=== PATIENT | female | born 1985 | race Caucasian/White ===

== ENCOUNTER → 2016-11-28 | Outpatient (CLI) | payer OTHER ==
[~2016-11-28] MED LIST: BCPILLS PO; MULT20CH PO; OXYC-57 PO; PEDICHW53 PO
== END | disposition home or self-care (01) ==
LOC: C.PAPS 11:55
PROVIDERS: ATTEND Obstetrics & Gynecology
DX: Z01.419 Encounter for gynecological examination (general) (routine) without abnormal findings (principal); R87.612 Low grade squamous intraepithelial lesion on cytologic smear of cervix (LGSIL)

== ENCOUNTER → 2016-12-21 | Outpatient (CLI) | payer OTHER | END | disposition home or self-care (01) | LOC: C.PATHSPEC 17:30 | PROVIDERS: ATTEND Obstetrics & Gynecology | DX: R87.612 Low grade squamous intraepithelial lesion on cytologic smear of cervix (LGSIL) (principal); R87.613 High grade squamous intraepithelial lesion on cytologic smear of cervix (HGSIL) ==

== ENCOUNTER → 2017-01-14 | Day surgery (SDC) | payer OTHER ==
[2017-01-02 16:39] LABS: BASO % 0.3 %; BASO ABS # 0.02 K/uL (0-0.2); COMPLETE YES; EOS % 0.4 %; HEMATOCRIT 38.5 % (37-47); IG% 0.3 %; LYMPH % 37.1 %; LYMPH ABS # 2.55 K/uL (1.2-3.4); MEAN CELL VOLUME 89.7 fL (80-100); MEAN CORPUSCULAR HEMOGLOBIN 31.9 pg (25-34); MEAN CORPUSCULAR HGB CONC 35.6 g/dl (32-36); MEAN PLATELET VOLUME 10.7 fL (7.4-10.4); MONO % 7.7 %; NEUT % 54.2 %; PLATELET COUNT 248 K/uL (130-400); RED BLOOD COUNT 4.29 M/uL (4.2-5.4); WHITE BLOOD COUNT 6.88 K/uL (4.8-10.8)
[2017-01-03 08:46] VITALS: Ht 172.7 cm; Wt 74.1 kg
--- NOTE | 2017-01-11 07:56 | HISTORY & PHYSICAL EXAMINATION ---
DATE OF ADMISSION: 01/14/2017 CHIEF COMPLAINT: DAISY 2. HISTORY OF PRESENT ILLNESS: The patient is a 31-year-old white female 1, para 1. The patient had low grade AMAURY on Pap smear November 2016. Colposcopy was performed on December 21 and biopsy showed DAISY 2. The patient wishes to proceed with treatment at this time and is for LEEP of the cervix. LEEP was scheduled in the office, but due to the marked exoversion of the cervix could not be easily performed there so is scheduled in the surgical center. ALLERGIES: MORPHINE DERIVATIVES AND VICODIN. MEDICATIONS: The patient presently takes a multivitamin and also is taking a control pill. PAST SURGICAL HISTORY: She has had a laparoscopic cholecystectomy in the past. She also had gastric surgery for morbid obesity. When she was 2 weeks old, she had ovarian surgery. MEDICAL PROBLEMS: She suffers with anxiety. She has also had back pain. PAST MEDICAL HISTORY: She has a history of an atypical pneumonia. She has had chickenpox in the past. She also has a history of kidney stones. FAMILY HISTORY: There is a family history of diabetes and hypercholesterolemia. SOCIAL HISTORY: The patient is single. She does not smoke cigarettes or drink alcohol. PHYSICAL EXAMINATION: VITAL SIGNS: Height 5 feet 8 inches, weight 163 pounds, blood pressure 116/78. HEENT: Grossly within normal limits. NECK: Supple without masses. CHEST: Her lungs are clear. HEART: Regular rate and rhythm. No murmurs, gallops or rubs. ABDOMEN: Soft and nontender with no masses. PELVIC: External genitalia normal. Vagina pink and stimulated. Cervix pink and closed with no lesions visible. There is significant exoversion present. Uterus is within normal limits size, nontender, adnexa nontender with no masses palpable. EXTREMITIES: No cyanosis, clubbing or edema. IMPRESSION: DAISY 2 of the cervix. PLAN: The patient is for loop electrosurgical excision procedure with removal of abnormal tissue from the cervix. We have discussed the options of follow up colposcopy and biopsy in 6 months rather than treatment at this time. We have also discussed the option of cryosurgery, which I do not think is feasible given the configuration of her cervix. We also discussed a cervical conization, but I do not think this is appropriate as it would tend to remove a greater amount of cervical tissue than necessary. The patient wishes to proceed with the LEEP at this time and is aware of the risks of bleeding, infection, possible damage to surrounding tissues and possible recurrence of dysplasia and possible need for further treatment. TENISHA
[~2017-01-14] VITALS: Ht 172.7 cm; Wt 74.1 kg
[~2017-01-14] MED LIST changes: +ATROPINE SULFATE 0.1 MG/ML 5ML SYR IV PRN; +DEXAMETHASONE SOD INJ 4 MG/ML VIAL IV PRN; +DEXAMETHASONE SOD INJ 4 MG/ML VIAL ONE; +EpHEDrine SULFATE INJ 50 MG/ML AMP IV PRN; +FENTANYL CITRATE INJ 50 MCG/1 ML 2 ML VIAL IV PRN; +FENTANYL CITRATE INJ 50 MCG/1 ML 2 ML VIAL ONE; +FERRIC SUBSULFATE 8 GM VIAL ONE; +IBUPROFEN 600 MG TAB PO PRN; +IODINE SOLN STRONG 14 ML ONE; +KETOROLAC TROMETHAMINE 30 MG/ML VIAL IV. PRN; +LABETALOL HCL IV 5 MG/ML 20ML IV PRN; +LACTATED RINGER'S 1000ML 1,000 ML IV SCH; +LIDOCAINE HCL 2% 2 ML VIAL (20MG/ML) ONE; +LIDOCAINE/EPINEPHRINE 1% INJ 50 ML VIAL ONE; +METOCLOPRAMIDE HCL INJ 5 MG/ML 2 ML VIAL IV PRN; +MIDAZOLAM HCL 1 MG/ML 2ML VIAL ONE; +ONDANSETRON INJ 2 MG/ML 2 ML VIAL IV PRN; +ONDANSETRON INJ 2 MG/ML 2 ML VIAL ONE; +PHENYLEPHRINE 100MCG/ML 5ML SYR IV PRN; +PROPOFOL IV EMULSION 10 MG/ML 20 ML VIAL IV ONE; +SODIUM CHLORIDE 0.9% 1000ML 1,000 ML IV SCH
--- NOTE | 2017-01-14 07:58 | History & Physical Bridge - SC ---
H&P Re-Evaluation Bridge Note: I have examined the patient, reviewed the History & Physical and in the interval since the performance of the History & Physical I have noted the following changes of clinical significance: No changes noted
--- NOTE | 2017-01-14 08:32 | [facility] Post Operative Brief Note ---
Immediate Operative Summary Operative Date Jan 14, 2017. Pre-Operative Diagnosis Cervical intraepithelial neoplasia II Post-Operative Diagnosis Same as preop with pathology pending Procedure(s) Performed Loop Electrosurgical Excision Procedure of Cervix Surgeon Dr. Beckham Clinical Informatics Spec Surgeon(s) None Estimated Blood Loss 10 mL Findings See dictated note. Specimens A: Posterior lip of cervix B: Anterior lip of cervix Complication(s) None Disposition Recovery Room / PACU
--- NOTE | 2017-01-14 08:43 | Discharge Instructions-SurgCtr ---
Discharge Instructions Visit Reason for Visit: DAISY II (high grade intraepithelial neoplasm of cervix) Discharge Discharge Diagnosis / Problem: S/P LEEP of Cervix Discharge Goals Goal(s): Diagnostic testing, Therapeutic intervention Activity Recommendations Activity Limitations: per Instructions/Follow-up section Anesthesia . Post Anesthesia Instructions: If you have had General Anesthesia or IV Sedation: * Do not drive today. * Resume driving when surgeon permits. * Do not make important decisions or sign legal documents today. * Call surgeon for: 1. Temperature elevations greater than 101 degrees F. 2. Uncontrollable pain. 3. Excessive bleeding. 4. Persistent nausea and vomiting. 5. Medication intolerance (nausea, vomiting or rash). * For nausea and vomiting use only clear liquids such as: tea, soda, bouillon until nausea subsides, then gradually increase diet as tolerated. * If you have any concerns or questions, call your surgeon's office. If physician is unavailable and it is an emergency, call 911 or go to the nearest emergency room. . Instructions / Follow-Up Instructions / Follow-Up ACTIVITY RECOMMENDATIONS: Normal activity the day after procedure with the following exceptions/ limitations: 1. No strenuous activity for 2-3 days. 2. Nothing in vagina until after your follow up exam. 3. No heavy lifting greater than 20 pounds for three days. 4. No tampons, douches or intercourse until cleared by physician. 5. You may drive when you feel capable after 24 hours. 6. You may bath or shower. 7. You may climb stairs without restrictions. 8. Call the office if you have persistent cramping and pain, foul vaginal discharge or bleeding heavier than a period. 9. Call the office at [phone] for an appointment with Dr Beckham for your follow up appointment for 3-4 weeks. Diet Recommendations Home Diet: resume previous diet Procedures Procedures Performed: Loop Electrosurgical Excision Procedure of Cervix Pending Studies Studies pending at discharge: yes List of pending studies: We will call you with the pathology report on the tissue removed. Medical Emergencies . Who to Call and When: Medical Emergencies: If at any time you feel your situation is an emergency, please call 911 immediately. . Non-Emergent Contact Non-Emergency issues call your: Care Services Manager Call Non-Emergent contact if: temperature is above 100.5, your pain is not controlled, your pain is worsening, your pain is concerning you . . "Provider Documentation" section prepared by Akanksha Beckham.
--- NOTE | 2017-01-14 08:57 | OPERATIVE REPORT ---
DATE OF OPERATION: 01/14/2017 PREOPERATIVE DIAGNOSIS: Cervical intraepithelial neoplasia 2. POSTOPERATIVE DIAGNOSIS: Same with pathology pending. PROCEDURE: LEEP of the cervix. SURGEON: Dr. Akanksha Beckham. ANESTHESIA: General. YARD CLERK: Dr. Sinha. PROCEDURE: The patient was taken to the operating room where general anesthesia was administered. After an adequate level was obtained, she was placed in dorsal lithotomy position. Vulva, vagina and cervix were prepped with Betadine solution. The patient was draped. Bladder was drained with a straight catheter. Weighted speculum was placed in the posterior fornix of the vagina. The cervix was painted with Lugol's solution. The cervix was then injected with approximately 4 mL of 1% lidocaine with epinephrine. A large wire loop was used and the posterior lip of cervix to the extent of the unstained epithelium was taken. A second pass was made for the anterior lip of the cervix. Some additional pieces were taken to make sure all of the unstained epithelium had been removed. At this point, ball tip cautery was used to obtain hemostasis and the circumference of the mucosa was cauterized. Monsel's was then applied to the remainder of the cervix for hemostasis. At this point, the procedure was ended. The patient tolerated the procedure well. Estimated blood loss was no more than 10 mL. The patient was taken to the recovery room in good condition. I attest to the content of the Intraoperative Record and any orders documented therein. Any exceptions are noted below. [facility]
[2017-01-14 09:22] VITALS: TEMP 36.4
[2017-01-14 09:37] VITALS: BP 95/67; PULSE 63; O2SAT 100
--- NOTE | 2017-01-14 09:52 | Anesthesia Progress Nt - [facility] ---
Anesthesia Post Op Note Date & Time Jan 14, 2017 at 09:52 Vital Signs Pain Intensity: 0 Vital Signs Past 12 Hours Date Time Temp Pulse Resp B/P Pulse Ox O2 Delivery O2 Flow Rate FiO2 01/14/17 09:37 63 16 95/67 100 Room Air 01/14/17 09:22 36.4 57 16 103/75 100 Room Air 01/14/17 09:13 103/64 01/14/17 09:12 54 15 01/14/17 09:12 54 15 100 01/14/17 09:08 106/58 01/14/17 09:07 55 17 01/14/17 09:07 55 17 100 01/14/17 09:04 Room Air 01/14/17 09:03 108/60 01/14/17 09:02 51 20 01/14/17 09:02 51 20 100 01/14/17 08:58 104/61 01/14/17 08:57 56 14 01/14/17 08:57 57 14 100 01/14/17 08:53 101/49 01/14/17 08:52 68 15 01/14/17 08:52 67 15 100 01/14/17 08:48 101/61 01/14/17 08:47 66 18 01/14/17 08:47 64 18 100 01/14/17 08:43 107/66 01/14/17 08:42 75 16 01/14/17 08:42 72 16 100 01/14/17 08:38 109/64 01/14/17 08:37 92 100 01/14/17 08:37 77 01/14/17 08:36 36.2 76 16 110/68 100 Diffusion Mask 5 01/14/17 07:16 36.8 63 16 91/59 100 Room Air Notes Mental Status: alert / awake / arousable, participated in evaluation Pt Amnestic to Procedure: Yes Nausea / Vomiting: adequately controlled Pain: adequately controlled Airway Patency, RR, SpO2: stable & adequate BP & HR: stable & adequate Hydration State: stable & adequate Anesthetic Complications: no major complications apparent
== END | disposition home or self-care (01) ==
LOC: X.SURG 06:51
PROVIDERS: ATTEND Obstetrics & Gynecology
DX: N87.1 Moderate cervical dysplasia (principal); E11.9 Type 2 diabetes mellitus without complications; Z88.5 Allergy status to narcotic agent; Z90.49 Acquired absence of other specified parts of digestive tract; Z98.84 Bariatric surgery status; Z83.3 Family history of diabetes mellitus; Z68.25 Body mass index [BMI] 25.0-25.9, adult

== ENCOUNTER 2017-02-23 17:25 | Emergency (ER) | payer OTHER ==
[~2017-02-23] VITALS: Ht 172.7 cm; Wt 73.5 kg
[~2017-02-23 17:25] MED LIST changes: -ATROPINE SULFATE 0.1 MG/ML 5ML SYR IV PRN; -DEXAMETHASONE SOD INJ 4 MG/ML VIAL IV PRN; -DEXAMETHASONE SOD INJ 4 MG/ML VIAL ONE; -EpHEDrine SULFATE INJ 50 MG/ML AMP IV PRN; -FENTANYL CITRATE INJ 50 MCG/1 ML 2 ML VIAL IV PRN; -FENTANYL CITRATE INJ 50 MCG/1 ML 2 ML VIAL ONE; -FERRIC SUBSULFATE 8 GM VIAL ONE; -IBUPROFEN 600 MG TAB PO PRN; -IODINE SOLN STRONG 14 ML ONE; -KETOROLAC TROMETHAMINE 30 MG/ML VIAL IV. PRN; -LABETALOL HCL IV 5 MG/ML 20ML IV PRN; -LACTATED RINGER'S 1000ML 1,000 ML IV SCH; -LIDOCAINE HCL 2% 2 ML VIAL (20MG/ML) ONE; -LIDOCAINE/EPINEPHRINE 1% INJ 50 ML VIAL ONE; -METOCLOPRAMIDE HCL INJ 5 MG/ML 2 ML VIAL IV PRN; -MIDAZOLAM HCL 1 MG/ML 2ML VIAL ONE; -MULT20CH PO; -ONDANSETRON INJ 2 MG/ML 2 ML VIAL IV PRN; -ONDANSETRON INJ 2 MG/ML 2 ML VIAL ONE; -OXYC-57 PO; -PHENYLEPHRINE 100MCG/ML 5ML SYR IV PRN; -PROPOFOL IV EMULSION 10 MG/ML 20 ML VIAL IV ONE; -SODIUM CHLORIDE 0.9% 1000ML 1,000 ML IV SCH
[2017-02-23 17:29] VITALS: TEMP 36.8; Ht 172.7 cm; Wt 73.5 kg
[2017-02-23] MEDS ORDERED: MULT20CH PO (17:43)
--- NOTE | 2017-02-23 18:06 | DIAGNOSTIC IMAGING REPORT ---
RIGHT HAND MIN 3 VIEWS ROUTINE CLINICAL HISTORY: Right hand pain following injury. COMPARISON: None FINDINGS: There is an oblique mildly displaced acute fracture of the base and proximal shaft of the right fifth metacarpal with soft tissue swelling. No additional fractures are identified. Carpal bones are intact. IMPRESSION: Acute mildly displaced oblique fracture of the base and proximal shaft of the right fifth metacarpal. Electronically signed by: Bobby Gross M.D. 02/23/2017 6:05 PM Dictated Date/Time: 02/23/2017 6:04 PM
[2017-02-23] MEDS ORDERED: IBUPROFEN 800 MG TAB PO STA (18:07)
[2017-02-23] MEDS ORDERED: OXYCODONE/ACETAMINOPHEN 5-325 TAB PO STA (18:09)
[2017-02-23] MEDS ORDERED: PERCOCET HOME PACK PO ONE (18:15)
[2017-02-23] MEDS ORDERED: OXYC-57 PO (18:30)
--- NOTE | 2017-02-23 18:34 | EMERGENCY ROOM VISIT NOTE ---
ED Visit Note First contact with patient: 17:32 CHIEF COMPLAINT: Hand injury HISTORY OF PRESENT ILLNESS: This 31-year-old female patient presented to the emergency department ambulatory after they injured the right hand just prior to arrival. The patient reports she was messing around with her boyfriend when she swung and hit her right hand on a pole. The patient rates the pain as sharp and 8/10. The patient denies any numbness or tingling. The patient does not have injuries to the wrist. The patient has are not had a previous fracture to this hand. She does report she has previously seen Dr. Smith of orthopedics. REVIEW OF SYSTEMS: A 6 system review of systems was completed with positives and pertinent negatives in the HPI. ALLERGIES: Hydrocodone, morphine MEDICATIONS: control pills, daily multivitamin PMH: No significant past medical history. SOCIAL HISTORY: The patient lives locally with family. Nonsmoker. PHYSICAL EXAM: Vital Signs: Reviewed Nurse's notes, vital signs stable. GENERAL : This is a 31-year-old female, in no acute distress, but appears to be in pain , well-developed, well-nourished. MUSCULOSKELETAL: There is in area of edema and tenderness over the proximal fifth metacarpal. There is mild ecchymosis over the area. The hand is otherwise nontender. Full range of motion of all fingers. Access Rep strength 4/5. There is no laceration. Capillary refill less than 2 seconds. No tenderness of the fingers or wrist. Full range of motion of the wrist. No snuff box tenderness. Radial pulse 2+. NEURO: Alert and oriented to person, place, and time. Normal sensation to light and sharp touch. RADIOGRAPHIC FINDINGS: RIGHT HAND MIN 3 VIEWS ROUTINE CLINICAL HISTORY: Right hand pain following injury. COMPARISON: None FINDINGS: There is an oblique mildly displaced acute fracture of the base and proximal shaft of the right fifth metacarpal with soft tissue swelling. No additional fractures are identified. Carpal bones are intact. IMPRESSION: Acute mildly displaced oblique fracture of the base and proximal shaft of the right fifth metacarpal. EMERGENCY DEPARTMENT COURSE: I examined the patient. An x-ray of the right hand was reviewed by myself and radiology and shows a fracture of the base of the fifth metacarpal. The patient was placed in an Ortho-Glass ulnar gutter splint by the ED vehicle modification technician under my supervision. Neurovascular status was reassessed and was intact. The patient was placed in an arm sling. She was given 800 mg ibuprofen for pain. She was given a home pack and prescription for Percocet to be taken for more severe pain. Conservative measures were discussed. She will contact orthopedics for follow-up. She verbalized understanding of my assessment and treatment plan. The patient was discharged home in good condition. DIAGNOSIS: Right fifth metacarpal fracture Problem List Surgical Problems: (1) Cholelith W Cholecys Nec Status: Resolved (2) History of cholecystectomy Status: Resolved Current/Historical Medications Scheduled Control Pills ( Control Pills), 1 TAB PO HS Multiple Vitamins W/ Minerals (Adult One Daily Gummies), 1 TAB PO DAILY Scheduled PRN Oxycodone/Acetaminophen 5MG/325MG (Percocet 5MG/325MG), 1-2 TABS PO Q4 PRN for Pain Allergies Coded Allergies: Hydrocodone (Verified Allergy, Unknown, TIGHTNESS IN CHEST, 02/23/17) TOLERATES IF TAKING WITH FOOD Morphine (Verified Allergy, Unknown, FEELS LIKE CAN'T BREATHE, HYPERVENTILATES, 02/23/17) Vital Signs Date Time Temp Pulse Resp B/P Pulse Ox O2 Delivery O2 Flow Rate FiO2 02/23/17 17:29 36.8 88 18 118/74 98 Room Air Medications Administered Medications (Trade) Dose Ordered Sig/Nataliia Route Start Time Stop Time Status Last Admin Dose Admin Ibuprofen (Motrin Tab) 800 mg NOW STAT PO 02/23/17 18:07 02/23/17 18:08 DC 02/23/17 18:28 800 MG Oxycodone/ Acetaminophen (Percocet 5/ 325MG Home Pack) 1 homepack UD ONCE PO 02/23/17 18:15 02/23/17 18:16 DC 02/23/17 18:28 1 HOMEPACK Departure Information Impression Primary Impression: Fracture of fifth metacarpal bone of right hand Dispostion Home / Self-Care Condition GOOD Prescriptions Oxycodone/Acetaminophen 5MG/325MG (PERCOCET 5MG/325MG) Tab 1-2 TABS PO Q4 Y for Pain, #15 TAB For Initial Treatment Prov: Cathy Sung ., YEFRI 02/23/17 Referrals Rohini Calzada, MehranRValeryNGerald (PCP) Randall Smith D.O. Patient Instructions My [facility] Additional Instructions You have been treated in the Emergency Department for a hand fracture. You have received pain medicine in the emergency department which impairs your ability to operate a vehicle. It is illegal for you to drive after receiving these medicines. You have been prescribed Percocet to be used for pain control. This is a narcotic medication. You cannot drive or consume alcohol while on this medicine. This medicine should only be used for pain that cannot be controlled with bkji-gtl-fanuaxl pain medicines. For pain control, you can use the following gddx-wqa-vadaftj medicines (if >12 yo): - Regular strength (325mg/tab) Tylenol (acetaminophen) 2 tabs every 4-6 hours as needed. Do not exceed 12 tablets in a 24 hour period. Avoid taking more than 4 grams (4000 mg) of Tylenol per day. This includes any other sources of acetaminophen you may take on a regular basis. - Regular strength (200 mg/tab) Advil (ibuprofen) 1-2 tabs every 4-6 hours as needed. Do not exceed a dose of 3200 mg per day. If this is a recent injury (<24 hrs), ice can be applied to the area of pain for the first 3 days to help decrease pain and inflammation. You have been provided the number for an Orthopaedic Surgeon. You should call this number as soon as possible to establish a follow-up visit from today's Emergency Department visit. Keep the brace in place until evaluated by Orthopedics. Return to the Emergency Department if your current symptoms worsen despite treatment course outlined above, or if you develop any of the following symptoms : intractable pain despite aforementioned treatment course or new onset of numbness or tingling of the fingers. Problem Qualifiers Primary Impression: Fracture of fifth metacarpal bone of right hand Encounter type: initial encounter Fracture type: closed Metacarpal location : base Fracture alignment: displaced Qualified Codes: S62.316A - Displaced fracture of base of fifth metacarpal bone, right hand, initial encounter for closed fracture
[2017-02-23 18:48] VITALS: BP 139/84; PULSE 87; O2SAT 98
[2017-09-13] MEDS ORDERED: SULF800T23 PO ×2 (10:21→11:42)
[2017-09-13] MEDS ORDERED: OXYC1TAB3 PO (11:42)
[2017-09-13] MEDS ORDERED: PROM25TA9 PO (11:49)
== END 2017-02-23 18:50 | disposition home or self-care (01) ==
LOC: C.EDB 17:25 → C.EDD 18:50
DX: S62.316A Displaced fracture of base of fifth metacarpal bone, right hand, initial encounter for closed fracture (principal); W22.8XXA Striking against or struck by other objects, initial encounter; Z90.49 Acquired absence of other specified parts of digestive tract; Z88.5 Allergy status to narcotic agent

== ENCOUNTER → 2017-04-05 | Outpatient (CLI) | payer OTHER ==
[~2017-04-05] MED LIST changes: +MULT20CH PO; +OXYC-57 PO; +OXYC1TAB3 PO; -PEDICHW53 PO; +PROM25TA9 PO; +SULF800T23 PO
[2017-04-07 15:39] LABS: CHLAMYDIA TRACH RNA*** NOT DETECTED (NOT DETECTED); GC (NEIS GONORRHOEAE)RNA** NOT DETECTED (NOT DETECTED)
== END | disposition home or self-care (01) ==
LOC: C.LABSPEC 12:28
PROVIDERS: ATTEND Physician Assistant
DX: Z30.430 Encounter for insertion of intrauterine contraceptive device (principal)

== ENCOUNTER → 2017-07-24 | Outpatient (CLI) | payer OTHER ==
[~2017-07-24] MED LIST changes: -OXYC1TAB3 PO; -PROM25TA9 PO; -SULF800T23 PO
== END | disposition home or self-care (01) ==
LOC: C.LABSPEC 13:49
PROVIDERS: ATTEND Physician Assistant
DX: L29.8 Other pruritus (principal)

== ENCOUNTER → 2017-09-12 | Outpatient (CLI) | payer OTHER ==
[~2017-09-12] MED LIST changes: -OXYC-57 PO; +OXYC1TAB3 PO; +PROM25TA9 PO; +SULF800T23 PO
--- NOTE | 2017-09-12 14:57 | DIAGNOSTIC IMAGING REPORT ---
KUB HISTORY: Acute left-sided flank pain with history of kidney stones Flank pain Urinary tract infection, acute COMPARISON: Acute abdominal series radiographs 11/07/2013, CT 12/11/2015 FINDINGS: The bowel gas pattern is non-obstructive. There is no organomegaly. No renal calculi. No ureteral calculi. No pneumoperitoneum or pneumatosis. Intrauterine device noted. Prior cholecystectomy. No fracture. IMPRESSION: No renal or ureteral stones. Electronically signed by: Cesar Banda M.D. 09/12/2017 2:55 PM Dictated Date/Time: 09/12/2017 2:54 PM
== END | disposition home or self-care (01) ==
LOC: C.RADPV 14:40
PROVIDERS: ATTEND Nurse Practitioner
DX: R10.9 Unspecified abdominal pain (principal); N39.0 Urinary tract infection, site not specified; R39.9 Unspecified symptoms and signs involving the genitourinary system

== ENCOUNTER → 2017-09-18 | Outpatient (CLI) | payer OTHER ==
[~2017-09-18] MED LIST changes: -BCPILLS PO; -MULT20CH PO
[2017-09-18 14:13] LABS: ALT/SGPT 40 U/L (12-78); BLOOD UREA NITROGEN 8 mg/dl (7-18); CALCIUM 8.8 mg/dl (8.5-10.1); CARBON DIOXIDE 26 mmol/L (21-32); CHLORIDE 105 mmol/L (98-107); CREATININE 0.98 mg/dl (0.60-1.20); GLUCOSE 95 mg/dl (70-99); SODIUM 137 mmol/L (136-145)
[2017-09-18 14:16] LABS: ALB/GLOB RATIO 1.2 (0.9-2); ALKALINE PHOSPHATASE 70 U/L (45-117); AST/SGOT 18 U/L (15-37)
== END | disposition home or self-care (01) ==
LOC: C.LABPVFM 11:00
PROVIDERS: ATTEND Nurse Practitioner
DX: R74.8 Abnormal levels of other serum enzymes (principal); N39.0 Urinary tract infection, site not specified

== ENCOUNTER → 2017-11-16 | Outpatient (CLI) | payer OTHER | END | disposition home or self-care (01) | LOC: C.LABPVFM 11:32 | PROVIDERS: ATTEND Nurse Practitioner Family | DX: R10.9 Unspecified abdominal pain (principal) ==

== ENCOUNTER → 2017-11-21 | Outpatient (CLI) | payer OTHER ==
--- NOTE | 2017-11-21 15:33 | DIAGNOSTIC IMAGING REPORT ---
KUB CLINICAL HISTORY: Right flank pain. FINDINGS: 2 AP supine abdominal radiographs are correlated with abdominal CT dated 09/13/2017. There is a nonobstructed abdominal bowel gas pattern. Cholecystectomy clips are identified in the right upper quadrant. Suture material projects over the stomach. An intrauterine device and tampon are seen in the pelvis. There is no radiographic evidence of nephrolithiasis. Tiny pelvic phleboliths are observed. The bony structures appear intact. IMPRESSION: 1. Nonobstructed abdominal bowel gas pattern. 2. There is no radiographic evidence of nephrolithiasis. No renal calculi were seen on the 09/13/[address] scan. Electronically signed by: Jacky Truong M.D. 11/21/2017 3:32 PM Dictated Date/Time: 11/21/2017 3:30 PM
[2017-11-21 17:32] LABS: BASO % 0.2 %; BASO ABS # 0.02 K/uL (0-0.2); COMPLETE YES; EOS % 1.7 %; HEMATOCRIT 41.5 % (37-47); IG% 0.2 %; LYMPH % 25.5 %; LYMPH ABS # 2.04 K/uL (1.2-3.4); MEAN CELL VOLUME 92.6 fL (80-100); MEAN CORPUSCULAR HEMOGLOBIN 31.5 pg (25-34); MEAN PLATELET VOLUME 10.4 fL (7.4-10.4); MONO % 7.6 %; NEUT % 64.8 %; PLATELET COUNT 252 K/uL (130-400); RED BLOOD COUNT 4.48 M/uL (4.2-5.4); WHITE BLOOD COUNT 8.01 K/uL (4.8-10.8)
[2017-11-21 17:52] LABS: BLOOD UREA NITROGEN 14 mg/dl (7-18); BUN/CREATININE RATIO 15.3 (10-20); CALCIUM 8.9 mg/dl (8.5-10.1); CARBON DIOXIDE 29 mmol/L (21-32); CHLORIDE 106 mmol/L (98-107); GLUCOSE 91 mg/dl (70-99); POTASSIUM 4.3 mmol/L (3.5-5.1); SODIUM 137 mmol/L (136-145)
== END | disposition home or self-care (01) ==
LOC: C.RADPV 14:50
PROVIDERS: ATTEND Nurse Practitioner
DX: R10.9 Unspecified abdominal pain (principal); R53.83 Other fatigue; I95.9 Hypotension, unspecified

== ENCOUNTER → 2018-01-08 | Outpatient (CLI) | payer OTHER | LOC: C.PAPS 11:30 | PROVIDERS: ATTEND Obstetrics & Gynecology | DX: Z12.4 Encounter for screening for malignant neoplasm of cervix (principal) ==

== ENCOUNTER 2018-07-02 22:40 | Emergency (ER) | payer OTHER ==
[~2018-07-02] VITALS: Ht 172.7 cm; Wt 80.0 kg
[~2018-07-02 22:40] MED LIST changes: -CEPH-571 PO; -CYCL10TA6 PO; -LEVO1IUD2 IU; -MULT-506 PO
[2018-07-02 22:53] VITALS: Ht 172.7 cm; Wt 80.0 kg
[2018-07-02] MEDS ORDERED: SODIUM CHLORIDE 0.9% 1000ML 1,000 ML IV STA (23:11)
[2018-07-02] MEDS ORDERED: ONDANSETRON INJ 2 MG/ML 2 ML VIAL IV STA (23:11)
[2018-07-02] MEDS ORDERED: CEFTRIAXONE SOD INJ 1 GM ADDVIAL IV STA (23:11)
[2018-07-02] MEDS ORDERED: FENTANYL CITRATE INJ 50 MCG/1 ML 2 ML VIAL IV STA (23:11)
--- NOTE | 2018-07-02 23:23 | EMERGENCY ROOM VISIT NOTE ---
History Report prepared by Yeimi: Abdon Sweeney Under the Supervision of: Dr. Diamante Gupta D.O. First contact with patient: 22:58 Chief Complaint: URINARY SYMPTOMS Stated Complaint: UTI,KIDNEY INFECTION Nursing Triage Summary: UTI, n/v and abd pain History of Present Illness The patient is a 32 year old female who presents to the Emergency Room with complaints of constant burning with urination beginning this afternoon. She currently reports her symptoms a 7/10 in severity. The patient states it felt like she has had to push to urinate for the past week. She reports she had her menstrual period over the weekend, and she had menstrual cramps. The patient notes her pain has been consistent since this weekend and is located in her lower back. She states she was evaluated by her PCP this morning and told she has a UTI and kidney infection. The patient reports her urine was sent out, and she did not have blood work obtained. She notes she was started on Cipro and Pyridium. The patient states she took both doses this afternoon, and she became nauseous and started vomiting. She reports she now has severe burning with urination, and this was not present before today. The patient notes a history of UTIs that spread to her kidneys, four kidney stones, diabetes, and a cholecystectomy. She states she was on a large amount of medications for her diabetes, and she had weight loss surgery. The patient reports her diabetes is now strictly diet controlled. She notes she has tried alternating between Aleve and Tylenol for her pain, but it has not helped. The patient denies a history of being resistant to organisms, diarrhea, changes in her bowel movements, and recent kidney evaluation. Review of EMR: Pt has no recent positive urine cultures. CT scan in August of 2017 that was negative for renal stones or abnormalities of the kidneys. Source of History: patient Onset: this afternoon Symptom Intensity: 7/10 Quality: burning (with urination) Timing: constant Associated Symptoms: + nausea, + vomiting, + back pain, No diarrhea Review of Systems See HPI for pertinent positives & negatives. A total of 10 systems reviewed and were otherwise negative. Past Medical & Surgical Medical Problems: (1) Bariatric Surgery Status (2) Colitis (3) Colitis (4) Diab Jane Wo Compl, Type Ii Or Unspec Type, Not Uncntrld (5) Diarrhea (6) Foot pain (7) Hypomagnesemia (8) Personal History Of Urinary Calculi Surgical Problems: (1) Cholelith W Cholecys Nec (2) History of cholecystectomy Family History Cancer Diabetes mellitus Hypertension Kidney disease Kidney stones Social History Smoking Status: Never Smoker Alcohol Use: none Drug Use: none Marital Status: in relationship Housing Status: lives with family Occupation Status: employed Current/Historical Medications Scheduled Cephalexin (Keflex), 1 CAP PO BID Levonorgestrel (Iud) (Mirena), 20 MCG IU CONTINOUS Multivitamin (Multivitamin), 1 TAB PO DAILY Scheduled PRN Cyclobenzaprine Hcl (Flexeril), 10 MG PO DAILY PRN for SPASMS Allergies Coded Allergies: Hydrocodone (Verified Allergy, Unknown, TIGHTNESS IN CHEST, 09/13/17) TOLERATES IF TAKING WITH FOOD Morphine (Verified Allergy, Unknown, FEELS LIKE CAN'T BREATHE, HYPERVENTILATES, 09/13/17) Physical Exam Vital Signs Date Time Temp Pulse Resp B/P (MAP) Pulse Ox O2 Delivery O2 Flow Rate FiO2 07/03/18 02:06 36.7 62 18 105/68 100 07/03/18 01:24 36.7 60 16 103/71 100 Room Air 07/03/18 00:13 63 15 106/64 100 Room Air 07/02/18 22:53 36.7 66 18 113/73 100 Room Air Physical Exam GENERAL: alert, uncomfortable appearing, well nourished, no distress, non-toxic EYE EXAM: normal conjunctiva, PERRL and EOM's grossly intact OROPHARYNX: no exudate, no erythema, lips, buccal mucosa, and tongue normal and mucous membranes are moist NECK: supple, no nuchal rigidity, no adenopathy, non-tender LUNGS: Clear to auscultation. Normal chest wall mechanics, no w/r/r HEART: no murmurs, S1 normal and S2 normal ABDOMEN: abdomen soft, non-tender, normo-active bowel sounds, no masses, no rebound or guarding. BACK: Back is symmetrical on inspection and there is no deformity, no midline tenderness, some reproducible tenderness of the lower back, no CVA tenderness. SKIN: no rashes and no bruising UPPER EXTREMITIES: upper extremities are grossly normal. FROM, nml pulses. LOWER EXTREMITIES: No pitting edema. FROM, nml pulses. NEURO EXAM: Normal sensorium, cranial nerves II-XII grossly intact, normal speech, no gross weakness of arms, no gross weakness of legs. Medical Decision & Procedures ER Provider Diagnostic Interpretation: Radiology results have been interpreted by the [facility] radiologist and reviewed by me. US RENAL: The kidneys are normal in size and in echogenicity bilaterally. No focal lesions. No evidence of renal calculi. No hydro. Bladder is not completely distended. Radiologist: Hadley Daniels MD Study ready at 0010 and initial results transmitted at 0043. Laboratory Results 07/02/18 23:37 Red Blood Count 4.47, Mean Corpuscular Volume 91.3, Mean Corpuscular Hemoglobin 32.0, Mean Corpuscular Hemoglobin Concent 35.0, Mean Platelet Volume 10.2, Neutrophils (%) (Auto) 59.2, Lymphocytes (%) (Auto) 33.0, Monocytes (%) (Auto) 6.2, Eosinophils (%) (Auto) 1.2, Basophils (%) (Auto) 0.3, Neutrophils # (Auto) 4.51, Lymphocytes # (Auto) 2.51, Monocytes # (Auto) 0.47, Eosinophils # (Auto) 0.09, Basophils # (Auto) 0.02 07/02/18 23:37 Test 07/02/18 23:37 07/02/18 23:43 07/02/18 23:45 White Blood Count 7.61 K/uL (4.8-10.8) Red Blood Count 4.47 M/uL (4.2-5.4) Hemoglobin 14.3 g/dL (12.0-16.0) Hematocrit 40.8 % (37-47) Mean Corpuscular Volume 91.3 fL (80-100) Mean Corpuscular Hemoglobin 32.0 pg (25-34) Mean Corpuscular Hemoglobin Concent 35.0 g/dl (32-36) Platelet Count 258 K/uL (130-400) Mean Platelet Volume 10.2 fL (7.4-10.4) Neutrophils (%) (Auto) 59.2 % Lymphocytes (%) (Auto) 33.0 % Monocytes (%) (Auto) 6.2 % Eosinophils (%) (Auto) 1.2 % Basophils (%) (Auto) 0.3 % Neutrophils # (Auto) 4.51 K/uL (1.4-6.5) Lymphocytes # (Auto) 2.51 K/uL (1.2-3.4) Monocytes # (Auto) 0.47 K/uL (0.11-0.59) Eosinophils # (Auto) 0.09 K/uL (0-0.5) Basophils # (Auto) 0.02 K/uL (0-0.2) RDW Standard Deviation 42.6 fL (36.4-46.3) RDW Coefficient of Variation 12.8 % (11.5-14.5) Immature Granulocyte % (Auto) 0.1 % Immature Granulocyte # (Auto) 0.01 K/uL (0.00-0.02) Anion Gap 7.0 mmol/L (3-11) Est Creatinine Clear Calc Drug Dose 97.2 ml/min Estimated GFR () 94.4 Estimated GFR (Non- 81.4 BUN/Creatinine Ratio 13.5 (10-20) Calcium Level 8.5 mg/dl (8.5-10.1) Magnesium Level 1.9 mg/dl (1.8-2.4) Total Bilirubin 0.3 mg/dl (0.2-1) Aspartate Amino Transf (AST/SGOT) 21 U/L (15-37) Alanine Aminotransferase (ALT/SGPT) 78 U/L (12-78) Alkaline Phosphatase 70 U/L (45-117) Total Protein 7.6 gm/dl (6.4-8.2) Albumin 4.1 gm/dl (3.4-5.0) Globulin 3.5 gm/dl (2.5-4.0) Albumin/Globulin Ratio 1.2 (0.9-2) Bedside Lactic Acid Venous 0.66 mmol/L (0.90-1.70) Urine Color YELLOW Urine Appearance CLEAR (CLEAR) Urine pH 6.0 (4.5-7.5) Urine Specific [place] 1.019 (1.000-1.030) Urine Protein NEG (NEG) Urine Glucose (UA) NEG (NEG) Urine Ketones NEG (NEG) Urine Occult Blood NEG (NEG) Urine Nitrite NEG (NEG) Urine Bilirubin NEG (NEG) Urine Urobilinogen NEG (NEG) Urine Leukocyte Esterase SMALL (NEG) Urine WBC (Auto) 10-30 /hpf (0-5) Urine RBC (Auto) 5-10 /hpf (0-4) Urine Hyaline Casts (Auto) 5-10 /lpf (0-5) Urine Epithelial Cells (Auto) >30 /lpf (0-5) Urine Bacteria (Auto) NEG (NEG) Laboratory results per my review. Medications Administered Medications (Trade) Dose Ordered Sig/Nataliia Route Start Time Stop Time Status Last Admin Dose Admin Sodium Chloride 1,000 ml @ 999 mls/hr Q1H1M STAT IV 07/02/18 23:11 07/03/18 00:11 DC 07/02/18 23:40 999 MLS/HR Ondansetron HCl (Zofran Inj) 4 mg NOW STAT IV 07/02/18 23:11 07/02/18 23:16 DC 07/02/18 23:40 4 MG Fentanyl Citrate (Fentanyl Inj) 50 mcg NOW STAT IV 07/02/18 23:11 07/02/18 23:16 DC 07/02/18 23:40 50 MCG Ceftriaxone Sodium (Rocephin Inj) 1 gm NOW STAT IV 07/02/18 23:11 07/02/18 23:16 DC 07/02/18 23:54 1 GM Fentanyl Citrate (Fentanyl Inj) 50 mcg NOW STAT IV 07/03/18 00:28 07/03/18 00:29 DC 07/03/18 00:37 50 MCG Ketorolac Tromethamine (Toradol Inj) 30 mg NOW STAT IV 07/03/18 01:00 07/03/18 01:01 DC 07/03/18 01:15 30 MG Lidocaine (Lidoderm Patch 5%) 1 patch NOW STAT TD 07/03/18 01:00 07/03/18 01:01 DC 07/03/18 01:16 1 PATCH Oxycodone/ Acetaminophen (Percocet 5-325mg Tab) 1 tab NOW ONCE PO 07/03/18 01:00 07/03/18 01:01 DC 07/03/18 01:16 1 TAB Oxycodone/ Acetaminophen (Percocet 5/ 325MG Home Pack) 1 homepack UD ONCE PO 07/03/18 01:00 07/03/18 01:01 DC 07/03/18 01:16 1 HOMEPACK Ondansetron HCl (ZOFRAN ODT 4MG Home Pack) 1 homepack UD ONCE PO 07/03/18 01:15 8/9/18 01:16 DC 07/03/18 01:17 1 HOMEPACK Cephalexin Monohydrate (Keflex 500MG Home Pack) 1 homepack NOW ONCE PO 07/03/18 02:00 07/03/18 02:01 DC 07/03/18 01:59 1 HOMEPACK ED Course 2301: The patient was evaluated in room A11B. A complete history and physical exam was performed. 2311: Ordered Rocephin 1gm IV, Fentanyl 50mcg IV, Zofran 4mg IV, Sodium Chloride 1000 ml @ 999 mls/hr IV 0026: I reevaluated the patient. She is feeling better. Her pain was better until she went to ultrasound. 0028: Ordered Fentanyl 50mcg IV 0049: I reevaluated the patient and updated her of her results. She is trying a PO challenge. 0100: Ordered Oxycodone/Acetaminophen 1 homepack PO, Oxycodone/Acetaminophen 1 tab PO, Lidocaine 1 patch TD, Toradol 30mg IV 0115: Ordered Ondansetron HCl 1 homepack PO 0148: Upon reevaluation, the patient is feeling better. I discussed the findings and the treatment plan with the patient. She verbalizes agreement and understanding. The patient will be discharged home when she receives her medication. 0200: Orderd Keflex 500MG 1 homepack PO Medical Decision Differential diagnosis: Etiologies such as renal colic, appendicitis, diverticulitis, mesenteric ischemia, aortic pathology, infections, inflammatory bowel disease, PUD, biliary pathology, UTI, as well as others were entertained. Patient improved here following meds and IV fluids. Patient given IV Rocephin as a precaution given concern for ascending UTI or early pyelonephritis. I do not suspect obstructive uropathy as patient's presentation not consistent with stone and no hydronephrosis or renal calculi seen on ultrasound. Ultrasound shows and over CT given patient has had multiple prior CTs already. Patient's renal function intact. No evidence of bacteremia/sepsis. I do not suspect other GI or vascular etiology of her symptoms. Discussed with patient use of the Keflex as there is been increasing resistance to Cipro in recent years. Discussed with her close follow-up with family doctor, symptoms to watch and return for, she verbalized understanding was agreeable with plan. Patient tolerating p.o. here prior to discharge, and ambulatory with a steady gait. Patient hemodynamically stable throughout. Medication Reconcilliation Current Medication List: was personally reviewed by me Blood Pressure Screening Patient's blood pressure: Normal blood pressure Blood pressure disposition: Did not require urgent referral Impression Primary Impression: Urinary tract infection Scribe Attestation The scribe's documentation has been prepared under my direction and personally reviewed by me in its entirety. I confirm that the note above accurately reflects all work, treatment, procedures, and medical decision making performed by me. Departure Information Dispostion Home / Self-Care Prescriptions Cephalexin (KEFLEX) 500 Mg Cap 1 CAP PO BID for 7 Days, #14 CAP Prov: Diamante Gupta, DO 07/03/18 Referrals No Doctor, Assigned (PCP) Forms HOME CARE DOCUMENTATION FORM, IMPORTANT VISIT INFORMATION Patient Instructions ED Kidney Infec Female, ED UTI Cystitis Female, My [facility] [address] Additional Instructions Please take antibiotic Keflex (cephalexin) as prescribed. Do not take the ciprofloxacin. You may use a nausea medication as needed. Please drink plenty of water. The urine culture will take 48 hours to result. If it grows out an abnormal organism and your antibiotics need to be changed, you will receive a phone call. If you have any worsening symptoms or other new concerns, please return the emergency room. Problem Qualifiers Primary Impression: Urinary tract infection Urinary tract infection type: acute cystitis Hematuria presence: without hematuria Qualified Codes: N30.00 - Acute cystitis without hematuria
[2018-07-02 23:53] LABS: BASO % 0.3 %; BASO ABS # 0.02 K/uL (0-0.2); EOS % 1.2 %; EOS ABS # 0.09 K/uL (0-0.5); HEMATOCRIT 40.8 % (37-47); HEMOGLOBIN 14.3 g/dL (12.0-16.0); IG# 0.01 K/uL (0.00-0.02); LYMPH ABS # 2.51 K/uL (1.2-3.4); MEAN CELL VOLUME 91.3 fL (80-100); MEAN PLATELET VOLUME 10.2 fL (7.4-10.4); MONO % 6.2 %; MONO ABS # 0.47 K/uL (0.11-0.59); NEUT % 59.2 %; NEUT ABS # 4.51 K/uL (1.4-6.5); PLATELET COUNT 258 K/uL (130-400); RED CELL DISTRIBUTION WIDTH CV 12.8 % (11.5-14.5); RED CELL DISTRIBUTION WIDTH SD 42.6 fL (36.4-46.3); WHITE BLOOD COUNT 7.61 K/uL (4.8-10.8)
[2018-07-03 00:13] LABS: ALBUMIN 4.1 gm/dl (3.4-5.0); CALCIUM 8.5 mg/dl (8.5-10.1); CREATININE 0.94 mg/dl (0.60-1.20); POTASSIUM 3.9 mmol/L (3.5-5.1); TOTAL PROTEIN 7.6 gm/dl (6.4-8.2)
[2018-07-03] MEDS ORDERED: FENTANYL CITRATE INJ 50 MCG/1 ML 2 ML VIAL IV STA (00:28)
[2018-07-03] MEDS ORDERED: LEVO1IUD2 IU (00:30)
[2018-07-03] MEDS ORDERED: MULT-506 PO (00:39)
[2018-07-03] MEDS ORDERED: CYCL10TA6 PO (00:40)
[2018-07-03] MEDS ORDERED: PERCOCET HOME PACK PO ONE (01:00)
[2018-07-03] MEDS ORDERED: OXYCODONE/ACETAMINOPHEN 5-325 TAB PO ONE (01:00)
[2018-07-03] MEDS ORDERED: KETOROLAC TROMETHAMINE 30 MG/ML VIAL IV STA (01:00)
[2018-07-03] MEDS ORDERED: LIDODERM (LIDOCAINE) PATCH 5% TD STA (01:00)
[2018-07-03] MEDS ORDERED: CEPH-571 PO (01:04)
[2018-07-03] MEDS ORDERED: ONDANSETRON HOME PACK 4MG OD TAB PO ONE (01:15)
[2018-07-03] MEDS ORDERED: CEPHALEXIN 500MG HOME PACK 1 EA BTL PO ONE (02:00)
[2018-07-03 02:06] VITALS: BP 105/68; PULSE 62; TEMP 36.7; O2SAT 100
--- NOTE | 2018-07-03 07:21 | DIAGNOSTIC IMAGING REPORT ---
(KARIME/BLAD)RETROPERITON COMP CLINICAL HISTORY: 32 years-old Female presenting with uti, back pain, hx pyelo. TECHNIQUE: Real-time grayscale and limited color Doppler ultrasound imaging of the kidneys and bladder was performed. COMPARISON: None. FINDINGS: Right kidney: Normal echogenicity of renal parenchyma. Right kidney measures 9.8 cm. No hydronephrosis. No convincing evidence of calculus or mass. Left kidney: Normal echogenicity of renal parenchyma. Left kidney measures 10.2 cm. No hydronephrosis. No convincing evidence of calculus or mass. Bladder: Circumferential bladder wall thickening though the bladder is under distended. Bilateral ureteral jets present. Other: Hyperechogenicity of the hepatic parenchyma. IMPRESSION: 1. Circumferential bladder wall thickening may be due to underdistention or cystitis. 2. No hydronephrosis. Normal sonographic evaluation of the kidneys. 3. Findings suggest hepatic steatosis. Electronically signed by: Randall Lawler M.D. 07/03/2018 7:20 AM Dictated Date/Time: 07/03/2018 6:58 AM
== END 2018-07-03 02:07 | disposition home or self-care (01) ==
LOC: C.EDB 22:42 → C.EDA 07-03 02:07
DX: N30.00 Acute cystitis without hematuria (principal); E11.9 Type 2 diabetes mellitus without complications; K52.9 Noninfective gastroenteritis and colitis, unspecified; E83.42 Hypomagnesemia; Z88.5 Allergy status to narcotic agent

== ENCOUNTER → 2018-07-02 | Outpatient (CLI) | payer OTHER ==
[~2018-07-02] MED LIST changes: +CEPH-571 PO; +CYCL10TA6 PO; +LEVO1IUD2 IU; +MULT-506 PO; -OXYC1TAB3 PO; -PROM25TA9 PO
== END | disposition home or self-care (01) ==
LOC: C.LABPVFM 16:22
PROVIDERS: ATTEND Nurse Practitioner Family
DX: M54.9 Dorsalgia, unspecified (principal)

== ENCOUNTER 2021-10-26 15:17 | Inpatient (IN) ==
[2021-10-26] MEDS ORDERED: OXYTOCIN 30 UNITS/500 ML BAG IV PRN ×2 (16:09)
[2021-10-26 16:42] LABS: Hemoglobin 12.7 g/dL (12.0-16.0); Mean Corpuscular Hemoglobin 29.3 pg (25-34); Mean Corpuscular Hgb Conc 32.6 g/dL (32-36); Mean Corpuscular Volume 90.1 fL (80-100); Mean Platelet Volume 11.9 fL (7.4-10.4); Platelet Count 197 K/uL (130-400); RDW Coefficient of Variation 14.7 % (11.5-14.5); Red Blood Count 4.33 M/uL (4.2-5.4); White Blood Count 8.89 K/uL (4.8-10.8)
[2021-10-26] MEDS: LACTATED RINGER'S 1,000 ML IV PRN ×2 (18:01→22:52)
[2021-10-26] MEDS ORDERED: ePHEDrine sulfate 50 MG/ML AMP ONE (20:36)
[2021-10-26] MEDS ORDERED: SODIUM CHLORIDE 0.9% INJ 10 ML VIAL ONE (20:36)
[2021-10-26] MEDS ORDERED: BUPIVACAINE 0.25% 30 ML VIAL ONE (20:36)
[2021-10-26] MEDS ORDERED: fentaNYL 2MCG/ML ROPIVACAINE 1.25MG/ML 100 ML BAG EPI ONE (20:37)
[2021-10-26] MEDS ORDERED: fentaNYL citrate 100 MCG/2 ML VIAL ONE (20:37)
[2021-10-26] MEDS ORDERED: NALOXONE HCL 1 MG in SODIUM CHLORIDE 0.9% 1000ML 1,000 ML IV PRN (20:42)
[2021-10-26] MEDS ORDERED: diphenhydrAMINE 50 MG/ML VIAL IV PRN (20:42)
[2021-10-26] MEDS ORDERED: ePHEDrine sulfate 50 MG/ML AMP IV PRN (20:42)
[2021-10-26] MEDS ORDERED: NALOXONE HCL 0.4 MG/1 ML VIAL/CARP IV PRN (20:42)
[2021-10-26] MEDS ORDERED: ONDANSETRON INJ 2 MG/ML 2 ML VIAL IV PRN (20:42)
[2021-10-26] MEDS ORDERED: fentaNYL 2MCG/ML ROPIVACAINE 1.25MG/ML 100 ML BAG EPI PRN (20:42)
--- NOTE | 2021-10-26 20:45 | Anesthesiology Consultation ---
Date of Service October 26, 2021 Assessment & Plan (1) Encounter for pre-operative examination: Chart Review Chart Review: Patient NOT seen in Pre Admission Testing and Acceptable Risk for Labor Epidural Consults Requested none History Height/Weight Height: 5 ft 8 in Weight: 95.254 kg Allergies Allergy/AdvReac Type Severity Reaction Status Date / Time morphine Allergy Severe FEELS LIKE Verified 10/26/21 18:05 CAN'T BREATHE, HYPERVENTILATES Medications Home Medications Medication Instructions Recorded Confirmed Last Taken prenat.vits,tank,[id number] 1 tab PO DAILY 03/10/21 10/26/21 Unknown acetone (urine) test (Ketone Urine #50 ea 04/28/21 10/25/21 Unknown Test) blood sugar diagnostic (OneTouch #150 ea 04/28/21 10/25/21 Unknown Ultra Blue Test Strip) lancets 33 gauge (OneTouch Delica #150 ea 04/28/21 10/25/21 Unknown Lancets) aspirin 81 mg tablet,delayed 81 mg PO DAILY 08/24/21 10/26/21 Unknown release (Adult Low Dose Aspirin) Active Medications Generic Name Dose Route Start Last Admin Trade Name Freq PRN Reason Stop Dose Admin Lactated Ringer's 1,000 mls @ 125 mls/hr 10/26/21 16:09 10/26/21 19:15 Lr IV 10/28/21 16:08 125 mls/hr .Q8H PRN Infusion L&D Protocol Protocol Oxytocin 30 units in 500 mls @ 3 mls/hr 10/26/21 16:09 10/26/21 19:23 Pitocin IV 10/28/21 16:08 0.18 units/hr .Q24H PRN 3 mls/hr Labor Induction/Augmentation Titration Protocol 0.18 UNITS/HR Past Medical History Medical History Diabetes mellitus, type 2 diet controlled. Faint History of chicken pox History of kidney stones Sciatic leg pain hx Past Family History Family History Unknown No problems noted. Grandmother (Maternal) Diabetes Cancer brain cancer Other Dyslipidemia No family history of adverse response to anesthesia Denies family history of Ovarian cancer Prostate cancer Breast cancer Colorectal cancer Past Surgical History Surgical History H/O colposcopy with cervical biopsy 12/21/[address] Akanksha Beckham - DAISY 1, DAISY 2, LGSIL, HGSIL H/O LEEP 01/14/[address] Akanksha Beckham - DAISY 1, Mild Dysplasia Hx laparoscopic cholecystectomy 12/21/[address] Briceno S/P laparoscopic sleeve gastrectomy 10/01/[address] Daniel Harrell @ [facility] - with Upper GI endoscopy Status post labral repair of shoulder 05/17/2020 3-anchor posteroinferior repair for instability and 1 anchor slap repair with tenodesis for traumatic SLAP lesion Social History Smoking Status: Never smoker tobacco type: smokeless tobacco Hx Alcohol Use: No Hx Substance Use: No substance use type: does not use Physical Exam Vital Signs Last Vital Signs Temp 36.9 C 10/26/21 19:17 Pulse 71 10/26/21 20:26 Resp 16 10/26/21 19:17 BP 113/60 10/26/21 20:26 Testing Laboratory Results 10/26/21 16:34 10/26/21 19:29 POC Glucose 95
--- NOTE | 2021-10-26 22:07 | History & Physical Report ---
Date of Service October 26, 2021 Assessment & Plan (1) Encounter for induction of labor: Plan: Multiparous IUP at 39 weeks gestation pesents for elective induction will begin pitocin augmentation of sponttaneous contractions epidural when requested monitor BSG Q 4H while in labor COVID RNA today is Positive- most like contracted it 3 weeks ago . symptoms 3 weeks ago were brief & currently she is asymptomatic. will move to negative pressure room for labor & delivery anticipate vaginal Admission and Anticipated Discharge Date Admission Date: October 26, 2021 History of Present Illness Primary Care Provider: Cecille Greenfield MD Patient is a 36 yo white female EDC 10/30/21 who presents at 39 3/7 weeks for IOL because of type II DM. She has had some spontaneous contractions intermittently. No SPROM or bloody show noted. She had some nasal congestion about 3 weeks ago but no fever/chills/cough/SOB or fatigue. GBS -negative COVID PCR on 09/23/21 was negative. Allergies Allergy/AdvReac Type Severity Reaction Status Date / Time morphine Allergy Severe FEELS LIKE Verified 10/26/21 18:05 CAN'T BREATHE, HYPERVENTILATES Home Medications Medication Instructions Recorded Confirmed Type prenat.vits,tank,[id number] 1 tab PO DAILY 03/10/21 10/26/21 History acetone (urine) test (Ketone Urine #50 ea 04/28/21 10/25/21 Rx Test) blood sugar diagnostic (OneTouch #150 ea 04/28/21 10/25/21 Rx Ultra Blue Test Strip) lancets 33 gauge (OneTouch Delica #150 ea 04/28/21 10/25/21 Rx Lancets) aspirin 81 mg tablet,delayed 81 mg PO DAILY 08/24/21 10/26/21 History release (Adult Low Dose Aspirin) Patient History Medical History Diabetes mellitus, type 2 diet controlled. Faint History of chicken pox History of kidney stones Sciatic leg pain hx Surgical History H/O colposcopy with cervical biopsy 12/21/[address] Akanksha Beckham - DAISY 1, DAISY 2, LGSIL, HGSIL H/O LEEP 01/14/[address] Akanksha Beckham - DAISY 1, Mild Dysplasia Hx laparoscopic cholecystectomy 12/21/[address] Briceno S/P laparoscopic sleeve gastrectomy 10/01/[address] Daniel Harrell @ [facility] - with Upper GI endoscopy Status post labral repair of shoulder 05/17/2020 3-anchor posteroinferior repair for instability and 1 anchor slap repair with tenodesis for traumatic SLAP lesion Family History Unknown No problems noted. Grandmother (Maternal) Diabetes Cancer brain cancer Other Dyslipidemia No family history of adverse response to anesthesia Denies family history of Ovarian cancer Prostate cancer Breast cancer Colorectal cancer Social History (Updated 03/22/21 @ 08:59 by Jannie Marie RN) Smoking Status: Never smoker Second Hand Exposure: No; Hx Alcohol Use: No Hx Substance Use: No Preferred Language: Kinyarwanda Communication Ability: Effective Textile Engraver Required: No Beliefs That Will Affect Care: None marital status: Single marital status details: Scott Worley (38) Current Living Situation: Family Current Living Situation Comment: Lives with son. 1 dog current occupational status: employed current occupation: [employer] Other Information That Helps Us Care for You: No Feels Safe at Home: Yes Safety Concerns: Feels Safe At This Time caffeine: Yes (coffee) Dental Care, Regularly: Yes Seatbelt Use: always Sunscreen Use: Yes Assistive Devices: None and Glasses Review of Systems All systems reviewed & are unremarkable except as noted in HPI & below Physical Exam Constitutional: WD/WN, vitals as above Respiratory: normal respiratory effort, lungs clear to auscultation Cardiovascular: RRR, no murmur, no edema Psychiatric: A+Ox3, euthymic affect Genitourinary: OB Exam Abdomen: + vertex, + estimated weight (7-8 po unds) and + irregular contractions Manual OB Exam: + cervical dilation 4 cm, + cervical effacement 80% and + station -2 OB Exam Monitor Tracing: + external FHT monitor used, + external uterine monitor used, + category I and + normal FHT variability Results & Data (MN) Vital Signs (Past 12 Hours) Vital Signs Temp Pulse Resp BP Pulse Ox 10/26/21 21:56 68 111/65 10/26/21 21:54 74 105/62 10/26/21 21:53 73 97 10/26/21 21:52 88 105/63 10/26/21 21:50 69 106/61 10/26/21 21:48 68 107/63 98 10/26/21 21:47 88 107/62 10/26/21 21:44 70 110/68 10/26/21 21:43 85 99 10/26/21 21:42 69 108/57 L 10/26/21 21:41 78 105/57 L 10/26/21 21:39 77 133/61 10/26/21 21:38 74 99 10/26/21 21:36 71 105/57 L 10/26/21 21:35 107/65 10/26/21 21:33 75 97 10/26/21 21:32 81 106/56 L 10/26/21 21:31 89 99/66 L 10/26/21 21:29 70 103/58 L 10/26/21 21:28 75 98 10/26/21 21:26 75 106/59 L 10/26/21 21:24 72 102/55 L 10/26/21 21:23 67 97 10/26/21 21:22 75 105/58 L 10/26/21 21:21 76 103/54 L 10/26/21 21:18 75 97/60 L 97 10/26/21 21:16 82 100/64 10/26/21 21:14 76 101/56 L 10/26/21 21:13 74 97 10/26/21 21:12 83 100/58 L 10/26/21 21:10 75 101/55 L 10/26/21 21:09 69 100/60 10/26/21 21:08 71 99 10/26/21 21:07 79 116/58 L 10/26/21 21:03 73 99 10/26/21 20:26 71 113/60 10/26/21 19:21 67 114/64 10/26/21 19:17 98.4 F 16 10/26/21 16:38 98.1 F 78 20 118/67 10/26/21 15:54 98.1 F 78 20 118/67 Code Status & VTE Plan VTE Prophylaxis Plan VTE Prophylaxis will be ordered: No Coding Level of Care Code None Diagnoses Encounter for induction of labor Z34.90
[2021-10-27] MEDS ORDERED: NURSING L&D Epidural Breakthrough Pain Update ONE (01:29)
[2021-10-27] MEDS ORDERED: BUPIVACAINE 0.25% 30 ML VIAL ONE (01:36)
[2021-10-27] MEDS ORDERED: SUPERCREAM 0.870% 15 GM JAR EXT PRN (04:51)
[2021-10-27] MEDS ORDERED: bisacodyL 10 MG SUPP PR PRN (04:51)
[2021-10-27] MEDS ORDERED: ACETAMINOPHEN 325 MG TAB PO PRN (04:51)
[2021-10-27] MEDS ORDERED: DIPHTHERIA/TETANUS/PERTUSSIS 0.5 ML SYR/VIAL IM ONE (04:51)
[2021-10-27] MEDS ORDERED: oxyCODONE/ACETAMINOPHEN 5mg/325mg TAB PO PRN (04:51)
[2021-10-27] MEDS ORDERED: BENZOCAINE 20% AER SPR 82.5 GM CAN EXT PRN (04:51)
[2021-10-27] MEDS ORDERED: HYDROCORTISONE ACETATE 25 MG SUPP PR PRN (04:51)
[2021-10-27] MEDS ORDERED: OXYTOCIN 30 UNITS/500 ML BAG IV PRN (04:51)
--- NOTE | 2021-10-27 05:01 | Delivery Summary ---
Vaginal Delivery Summary Date of Service October 27, 2021 Vaginal Delivery Summary and 1st Degree LAC Patient is a 36-year-old 2 para 1-0-0-1 who presents at 39-3/7 weeks for induction of labor because of type 2 diabetes. Pitocin augmentation of spontaneous contractions was begun. Membranes were ruptured for clear fluid after she received effective epidural analgesia. She progressed to full dilation with the urge to push. She pushed effectively over intact perineum for a viable male . After the head was delivered the rest of the infant delivered easily. He was placed on the mother's abdomen for further attention and drying. After approximately 1 minute the cord was clamped and cut. The infant was vigorous and crying upon delivery. The placenta was then expressed intact with a three-vessel cord. A first-degree perineal laceration was repaired with 3-0 chromic in the usual fashion. bleeding was controlled with dilute Pitocin and fundal massage. Estimated blood loss 200 cc. Mother and were doing well after delivery. MNP Vaginal Delivery Charge Delivery Type Details: and 1st Degree LAC
[2021-10-27] MEDS: IBUPROFEN 600 MG TAB PO PRN ×3 (07:59→18:26)
[2021-10-27] MEDS: DOCUSATE SODIUM 100 MG CAP PO SCH ×2 (07:59→22:06)
[2021-10-27] MEDS: PRENATAL VITAMIN 1 TAB PO SCH (07:59)
--- NOTE | 2021-10-27 08:08 | Anesthesia Procedure Note ---
Date of Service October 27, 2021 Anesthesia Post Epidural Note Vital Signs Vital Signs: Temp Pulse Resp BP Pulse Ox 36.8 C 71 18 106/58 L 100 10/27/21 07:16 10/27/21 07:16 10/27/21 07:16 10/27/21 07:16 10/27/21 04:43 Pain Intensity Bilateral Abdomen: Pain Intensity: 4 Notes Mental Status: alert / awake / arousable and participated in evaluation Nausea / Vomiting: adequately controlled Pain: adequately controlled Airway Patency, RR, SpO2: stable & adequate BP & HR: stable & adequate Hydration State: stable & adequate Neuraxial Anesthesia: was administered and sensory block is resolving Anesthetic Complications: no major complications apparent and Pt Satisfied with anesthetic care Epidural: Removed without complications and With tip intact
[2021-10-28] MEDS: IBUPROFEN 600 MG TAB PO PRN ×2 (00:25→09:13)
[2021-10-28 06:07] LABS: Hematocrit (blood only) 34.8 % (37-47); Hemoglobin 11.1 g/dL (12.0-16.0); Mean Corpuscular Hgb Conc 31.9 g/dL (32-36); Mean Corpuscular Volume 90.9 fL (80-100); Mean Platelet Volume 11.9 fL (7.4-10.4); Platelet Count 166 K/uL (130-400); RDW Standard Deviation 48.9 fL (36.4-46.3); Red Blood Count 3.83 M/uL (4.2-5.4); White Blood Count 7.63 K/uL (4.8-10.8)
--- NOTE | 2021-10-28 07:44 | Obstetrical Progress Note ---
Date of Service October 28, 2021 Assessment & Plan (1) state: day #1 patient is ambulating tolerating oral diet has no extremity pain no depression wishes to go home this is reasonable Covid test was positive was is in isolation Subjective Ambulation: ambulating normally Voiding: no voiding problems Passing Gas:: Yes Diet Tolerance:: regular diet Lochia:: Small Feeding Type:: bottle feeding Current Pain Level(1-10): 0 Results & Data ([facility]) Vital Signs (Past 12 Hours) Vital Signs Temp Pulse Resp BP Pulse Ox 10/28/21 04:00 98.2 F 64 16 103/65 97 10/28/21 00:00 98.2 F 70 16 107/68 99 10/27/21 20:00 98.4 F 73 16 107/68 97
[2021-10-28] MEDS: PRENATAL VITAMIN 1 TAB PO SCH (09:13)
[2021-10-28] MEDS: DOCUSATE SODIUM 100 MG CAP PO SCH (09:13)
[2021-10-28] MEDS ORDERED: bisacodyL 5 MG TABEC PO SCH (20:00)
== END 2021-10-28 11:20 | disposition home or self-care (01) | DRG 805 ==
LOC: 4S1 15:37 → 4W 16:40 → 3N 10-27 11:53